=== PATIENT | female | born 1935 | race Caucasian/White ===

== ENCOUNTER 2017-11-28 21:55 | Emergency (ER) | payer MEDICARE, OTHER, MEDICAID | END 2017-11-29 01:00 | disposition home or self-care (01) | LOC: E/R 11-29 01:00 | DX: Z43.1 Encounter for attention to gastrostomy (principal); I10 Essential (primary) hypertension; E11.9 Type 2 diabetes mellitus without complications; Z79.84 Long term (current) use of oral hypoglycemic drugs | CPT/HCPCS: 99284 ==

== ENCOUNTER 2018-09-10 08:10 | Inpatient (IN) | payer MEDICARE, OTHER ==
[2018-09-10 08:33] LABS: ADD MAN DIFF? NO
[2018-09-10 08:36] LABS: WHITE BLOOD COUNT 5.5 10^3/ul (4.8-10.8)
[2018-09-10 08:36] LABS: BASOPHILS % 0.5 % (0.0-2.0); EOSINOPHILS # 0.3 10^3/ul (0.0-0.5); EOSINOPHILS % 4.7 % (0.0-7.0); HEMATOCRIT 26.1 % (37.0-47.0); HEMOGLOBIN 8.7 g/dl (12.0-16.0); LYMPHOCYTES # 0.9 10^3/ul (0.8-2.9); LYMPHOCYTES % 15.7 % (15.0-51.0); MEAN CORPUSCULAR HEMOGLOBIN 31.5 pg (29.0-33.0); MEAN CORPUSCULAR HGB CONC 33.3 g/dl (32.0-37.0); MEAN CORPUSCULAR VOLUME 94.6 fl (82.0-101.0); MEAN PLATELET VOLUME 9.1 fl (7.4-10.4); MONOCYTE # 0.5 10^3/ul (0.3-0.9); MONOCYTES % 8.4 % (0.0-11.0); NEUTROPHIL # 3.9 10^3/ul (1.6-7.5); NEUTROPHILS % 70.3 % (39.0-77.0); PLATELET COUNT 285 10^3/UL (140-415); RED BLOOD COUNT 2.76 10^6/ul (4.20-5.40); RED CELL DISTRIBUTION WIDTH 11.6 % (11.5-14.5)
[2018-09-10] MEDS: PANTOPRAZOLE 40 MG INJ IV ×2 (08:37→17:20)
[2018-09-10 08:53] LABS: ALANINE AMINOTRANSFERASE 20 IU/L (13-69); ALBUMIN 3.5 g/dl (3.3-4.9); ALKALINE PHOSPHATASE 149 IU/L (42-121); ANION GAP 6 (5-13); ASPARTATE AMINO TRANSFERASE 23 IU/L (15-46); BILIRUBIN,INDIRECT 0.1 mg/dl (0-1.1); BILIRUBIN,TOTAL 0.1 mg/dl (0.2-1.3); BLOOD UREA NITROGEN 31 mg/dl (7-20); CALCIUM 9.2 mg/dl (8.4-10.2); CARBON DIOXIDE 29 mmol/L (21-31); CHLORIDE 95 mmol/L (97-110); GLUCOSE 123 mg/dl (70-220); POTASSIUM 5.1 mmol/L (3.5-5.1); SODIUM 130 mmol/L (135-144); TOTAL PROTEIN 6.4 g/dl (6.1-8.1)
[2018-09-10 09:04] LABS: TROPONIN-I < 0.012 ng/ml (0.000-0.120)
[2018-09-10 09:19] LABS: PROTIME 12.3 Sec (11.9-14.9)
[2018-09-10 09:20] LABS: PARTIAL THROMBOPLASTIN TIME 33.5 Sec (23.0-35.0)
[2018-09-10] MEDS ORDERED: ACETAMINOPHEN 325 MG TAB PO ×2 (10:00→12:00)
[2018-09-10] MEDS ORDERED: ONDANSETRON 4 MG INJ IV (10:00)
[2018-09-10] MEDS: SOD CHLORIDE 0.9% 1,000 ML IV (10:23)
[2018-09-10] MEDS ORDERED: SOD CHLORIDE 0.45% 1,000 ML IV (11:39)
[2018-09-10] MEDS ORDERED: morphine 2 MG INJ IV (12:00)
[2018-09-10] MEDS ORDERED: NITROGLYCERIN (SL) 0.4 MG TAB SL (12:00)
[2018-09-10] MEDS ORDERED: DOCUSATE SODIUM 100 MG CAP PO (12:00)
[2018-09-10] MEDS ORDERED: LORAZEPAM 2 MG INJ IV (12:00)
[2018-09-10] MEDS ORDERED: ALBUTEROL/IPRATROPIUM (NEB) 3 ML AMP HHN (12:00)
[2018-09-10] MEDS ORDERED: hydrALAzine 20 MG INJ IV (12:00)
[2018-09-10] MEDS ORDERED: HYDROCODONE/APAP (5/325) TAB PO (12:00)
[2018-09-10] MEDS ORDERED: NACL 0.9% 3 ML SYG IV (12:00)
[2018-09-10] MEDS ORDERED: MAGNESIUM HYDROXIDE 30ML CUP PO (12:00)
[2018-09-10 12:19] LABS: HEMATOCRIT 24.9 % (37.0-47.0); HEMOGLOBIN 8.3 g/dl (12.0-16.0)
[2018-09-10 12:40] LABS: INR 0.96; PROTIME 12.9 Sec (11.9-14.9)
[2018-09-10 12:41] LABS: PARTIAL THROMBOPLASTIN TIME 34.7 Sec (23.0-35.0)
[2018-09-10 12:58] LABS: FREE T4 (FREE THYROXINE) 1.16 ng/dl (0.85-1.93)
[2018-09-10] MEDS: INSULIN ASPART [NOVOLOG] 3 ML PEN SC ×3 (13:00→22:48)
[2018-09-10] MEDS: SOD CHLORIDE 0.9% 500 ML IV (13:28)
[2018-09-10] MEDS: DEXTROSE 5%-0.9% NACL 1,000 ML IV (13:31)
[2018-09-10] MEDS: MUPIROCIN 2% 22 GM OINT TOP ×2 (17:20→22:49)
[2018-09-10] MEDS: PEG/ELECTROLYTES 4L BTL NGT (20:00)
[2018-09-10] MEDS ORDERED: NON-FORMULARY/PATIENT OWN MED (Cran/Vitc/Mannose/Inulin/Brom (Uti-Stat Liquid) 30 ML) GTB (21:00)
[2018-09-10] MEDS ORDERED: PEG/ELECTROLYTES 4L BTL NGT (22:00)
[2018-09-10] MEDS: INSULIN GLARGINE [LANTus] (100 UNITS/ML) SYG SC (22:48)
[2018-09-11] MEDS: PEG/ELECTROLYTES 4L BTL NGT (00:47)
[2018-09-11] MEDS: DEXTROSE 5%-0.9% NACL 1,000 ML IV ×3 (00:49→19:00)
[2018-09-11] MEDS: INSULIN ASPART [NOVOLOG] 3 ML PEN SC ×6 (00:49→21:00)
[2018-09-11] MEDS: ACCU-CHEK XX (01:25)
[2018-09-11] MEDS: PANTOPRAZOLE 40 MG INJ IV ×2 (05:35→17:59)
[2018-09-11 06:06] LABS: ADD MAN DIFF? NO
[2018-09-11 06:09] LABS: ABNORMAL IP MESSAGE 1; BASOPHILS % 0.4 % (0.0-2.0); EOSINOPHILS % 0.4 % (0.0-7.0); HEMATOCRIT 21.7 % (37.0-47.0); HEMOGLOBIN 7.2 g/dl (12.0-16.0); LYMPHOCYTES # 0.5 10^3/ul (0.8-2.9); LYMPHOCYTES % 6.7 % (15.0-51.0); MEAN CORPUSCULAR HEMOGLOBIN 31.4 pg (29.0-33.0); MEAN CORPUSCULAR HGB CONC 33.2 g/dl (32.0-37.0); MEAN CORPUSCULAR VOLUME 94.8 fl (82.0-101.0); MEAN PLATELET VOLUME 9.6 fl (7.4-10.4); MONOCYTE # 0.3 10^3/ul (0.3-0.9); MONOCYTES % 4.3 % (0.0-11.0); NEUTROPHIL # 6.9 10^3/ul (1.6-7.5); NEUTROPHILS % 87.9 % (39.0-77.0); PLATELET COUNT 274 10^3/UL (140-415); RED BLOOD COUNT 2.29 10^6/ul (4.20-5.40); RED CELL DISTRIBUTION WIDTH 11.7 % (11.5-14.5)
[2018-09-11 06:09] LABS: WHITE BLOOD COUNT 7.9 10^3/ul (4.8-10.8)
[2018-09-11 06:24] LABS: POSITIVE DIFF @See below
[2018-09-11 06:31] LABS: HEMOGLOBIN A1C 5.6 % (0-5.9)
[2018-09-11 06:53] LABS: ANION GAP 7 (5-13); BLOOD UREA NITROGEN 16 mg/dl (7-20); CALCIUM 8.5 mg/dl (8.4-10.2); CARBON DIOXIDE 20 mmol/L (21-31); CHLORIDE 109 mmol/L (97-110); CREATININE 0.53 mg/dl (0.44-1.00); GLUCOSE 204 mg/dl (70-220); MAGNESIUM 1.7 mg/dl (1.7-2.5); POTASSIUM 4.3 mmol/L (3.5-5.1); SODIUM 136 mmol/L (135-144)
[2018-09-11 06:59] LABS: CHOL/HDL RATIO 2.1 RATIO; HDL CHOLESTEROL 46 mg/dl (33-92); LDL CHOLESTEROL,CALCULATED 33 mg/dl; TRIGLYCERIDES 92 mg/dl (0-149)
[2018-09-11 06:59] LABS: CHOLESTEROL 97 mg/dl (100-200)
[2018-09-11] MEDS ORDERED: LIDOCAINE 2% (SDV) 5 ML INJ (07:00)
[2018-09-11] MEDS ORDERED: PROPOFOL 200 MG INJ (07:00)
[2018-09-11 09:29] LABS: OCCULT BLOOD STOOL POSITIVE (NEGATIVE)
[2018-09-11 09:30] LABS: OCCULT BLOOD STOOL POSITIVE (NEGATIVE)
[2018-09-11] MEDS: DOCUSATE SODIUM 10 MG/ML (10ML CUP) GTB (10:14)
[2018-09-11] MEDS: MULTIVITAMINS THERAPEUTIC TAB GTB (10:15)
[2018-09-11] MEDS: FOLIC ACID 0.4 MG TAB GTB (10:15)
[2018-09-11] MEDS: MUPIROCIN 2% 22 GM OINT TOP ×2 (10:18→21:00)
[2018-09-11] MEDS: NYSTATIN 15 GM CR TOP (15:30)
[2018-09-11] MEDS: NYSTATIN 30 GM POWDER BTL TOP ×2 (15:30→22:08)
[2018-09-11] MEDS ORDERED: hydrALAzine 20 MG INJ IV (17:00)
[2018-09-11] MEDS ORDERED: ONDANSETRON 4 MG INJ IV (17:00)
[2018-09-11] MEDS ORDERED: FENTAnyl 50 MCG/ML VIAL IV (17:00)
[2018-09-11] MEDS ORDERED: ALBUTEROL 0.083% (NEB) 2.5 MG/3 ML AMP HHN (17:00)
[2018-09-11] MEDS ORDERED: EPHEDrine SULFATE 50 MG/5 ML SYG IV (17:00)
[2018-09-11] MEDS ORDERED: LABETALOL HCL 20MG INJ IV (17:00)
[2018-09-11 18:28] LABS: AHG CROSSMATCH 1 2
[2018-09-11] MEDS: SOD CHLORIDE 0.9% 250 ML IV* (18:28)
[2018-09-11] MEDS: INSULIN GLARGINE [LANTus] (100 UNITS/ML) SYG SC (22:07)
[2018-09-12] MEDS: INSULIN ASPART [NOVOLOG] 3 ML PEN SC ×3 (00:58→08:46)
[2018-09-12] MEDS: ACCU-CHEK XX (00:59)
[2018-09-12] MEDS: NYSTATIN 15 GM CR TOP ×2 (01:56→08:47)
[2018-09-12] MEDS ORDERED: ACCU-CHEK XX (02:00)
[2018-09-12] MEDS: DEXTROSE 5%-0.9% NACL 1,000 ML IV (04:12)
[2018-09-12] MEDS: PANTOPRAZOLE 40 MG INJ IV ×2 (05:29→17:34)
[2018-09-12 07:01] LABS: ADD MAN DIFF? NO
[2018-09-12 07:07] LABS: WHITE BLOOD COUNT 7.7 10^3/ul (4.8-10.8)
[2018-09-12 07:07] LABS: BASOPHIL # 0.1 10^3/ul (0.0-0.1); BASOPHILS % 0.7 % (0.0-2.0); EOSINOPHILS # 0.1 10^3/ul (0.0-0.5); EOSINOPHILS % 0.8 % (0.0-7.0); HEMATOCRIT 33.5 % (37.0-47.0); HEMOGLOBIN 11.4 g/dl (12.0-16.0); LYMPHOCYTES # 1.1 10^3/ul (0.8-2.9); LYMPHOCYTES % 14.3 % (15.0-51.0); MEAN PLATELET VOLUME 9.4 fl (7.4-10.4); MONOCYTE # 0.7 10^3/ul (0.3-0.9); MONOCYTES % 9.6 % (0.0-11.0); NEUTROPHIL # 5.7 10^3/ul (1.6-7.5); NEUTROPHILS % 74.1 % (39.0-77.0); PLATELET COUNT 207 10^3/UL (140-415); RED BLOOD COUNT 3.68 10^6/ul (4.20-5.40); RED CELL DISTRIBUTION WIDTH 13.3 % (11.5-14.5)
[2018-09-12 07:30] LABS: ANION GAP 4 (5-13); BLOOD UREA NITROGEN 14 mg/dl (7-20); CALCIUM 9.2 mg/dl (8.4-10.2); CARBON DIOXIDE 23 mmol/L (21-31); CHLORIDE 113 mmol/L (97-110); CREATININE 0.61 mg/dl (0.44-1.00); GLUCOSE 96 mg/dl (70-220); POTASSIUM 3.9 mmol/L (3.5-5.1); SODIUM 140 mmol/L (135-144)
[2018-09-12] MEDS: FOLIC ACID 0.4 MG TAB GTB (08:44)
[2018-09-12] MEDS: MULTIVITAMINS THERAPEUTIC TAB GTB (08:44)
[2018-09-12] MEDS: DOCUSATE SODIUM 10 MG/ML (10ML CUP) GTB (08:44)
[2018-09-12] MEDS: NYSTATIN 30 GM POWDER BTL TOP ×2 (08:47→21:50)
[2018-09-12] MEDS: MUPIROCIN 2% 22 GM OINT TOP (08:47)
[2018-09-12] MEDS: CLOTRIMAZOLE 1% 30 GM CR TOP (12:51)
[2018-09-12] MEDS: DEXTROSE 5%-0.45% NACL 1,000 ML IV (21:38)
[2018-09-13] MEDS: CLOTRIMAZOLE 1% 30 GM CR TOP ×3 (00:45→20:23)
[2018-09-13] MEDS: PANTOPRAZOLE 40 MG INJ IV ×2 (05:34→17:56)
[2018-09-13 08:29] LABS: ADD MAN DIFF? NO
[2018-09-13 08:33] LABS: BASOPHILS % 0.4 % (0.0-2.0); EOSINOPHILS # 0.1 10^3/ul (0.0-0.5); EOSINOPHILS % 0.6 % (0.0-7.0); HEMATOCRIT 35.3 % (37.0-47.0); HEMOGLOBIN 12.2 g/dl (12.0-16.0); LYMPHOCYTES # 0.7 10^3/ul (0.8-2.9); LYMPHOCYTES % 9.5 % (15.0-51.0); MEAN CORPUSCULAR HGB CONC 34.6 g/dl (32.0-37.0); MEAN CORPUSCULAR VOLUME 89.8 fl (82.0-101.0); MEAN PLATELET VOLUME 9.4 fl (7.4-10.4); MONOCYTE # 0.6 10^3/ul (0.3-0.9); MONOCYTES % 7.4 % (0.0-11.0); NEUTROPHIL # 6.4 10^3/ul (1.6-7.5); NEUTROPHILS % 81.7 % (39.0-77.0); PLATELET COUNT 224 10^3/UL (140-415); RED BLOOD COUNT 3.93 10^6/ul (4.20-5.40); RED CELL DISTRIBUTION WIDTH 12.9 % (11.5-14.5)
[2018-09-13 08:33] LABS: WHITE BLOOD COUNT 7.8 10^3/ul (4.8-10.8)
[2018-09-13 08:49] LABS: ANION GAP 9 (5-13); BLOOD UREA NITROGEN 10 mg/dl (7-20); CARBON DIOXIDE 26 mmol/L (21-31); CHLORIDE 104 mmol/L (97-110); CREATININE 0.62 mg/dl (0.44-1.00); GLUCOSE 81 mg/dl (70-220); POTASSIUM 3.5 mmol/L (3.5-5.1); SODIUM 139 mmol/L (135-144)
[2018-09-13] MEDS: DOCUSATE SODIUM 10 MG/ML (10ML CUP) GTB (09:16)
[2018-09-13] MEDS: MULTIVITAMINS THERAPEUTIC TAB GTB (09:16)
[2018-09-13] MEDS: FOLIC ACID 0.4 MG TAB GTB (09:16)
[2018-09-13] MEDS: NYSTATIN 30 GM POWDER BTL TOP ×2 (09:16→20:24)
[2018-09-13] MEDS: ONDANSETRON 4 MG INJ IV (09:36)
[2018-09-13] MEDS: FLUCONAZOLE 400 MG/NS (PMX) 200 ML IVPB (09:41)
[2018-09-13] MEDS ORDERED: GLUCOSE GEL 15 GRAM TUBE BUCCAL (13:00)
[2018-09-13] MEDS ORDERED: GLUCOSE GEL 15 GRAM TUBE PO ×2 (13:00)
[2018-09-13] MEDS ORDERED: GLUCAGON 1 MG INJ IM (13:00)
[2018-09-13] MEDS ORDERED: DEXTROSE 50% 50 ML SYRINGE IV ×2 (13:00)
[2018-09-13] MEDS: INSULIN ASPART [NOVOLOG] 3 ML PEN SC ×3 (13:30→20:22)
[2018-09-13 15:37] LABS: ALANINE AMINOTRANSFERASE 14 IU/L (13-69); ALBUMIN/GLOBULIN RATIO 1.11; ALKALINE PHOSPHATASE 77 IU/L (42-121); ANION GAP 4 (5-13); ASPARTATE AMINO TRANSFERASE 28 IU/L (15-46); BLOOD UREA NITROGEN 10 mg/dl (7-20); CALCIUM 8.6 mg/dl (8.4-10.2); CARBON DIOXIDE 27 mmol/L (21-31); CHLORIDE 105 mmol/L (97-110); CREATININE 0.64 mg/dl (0.44-1.00); GLUCOSE 89 mg/dl (70-220); MAGNESIUM 1.7 mg/dl (1.7-2.5); PHOSPHORUS 3.6 mg/dl (2.5-4.9); POTASSIUM 3.3 mmol/L (3.5-5.1); SODIUM 136 mmol/L (135-144); TOTAL PROTEIN 5.7 g/dl (6.1-8.1); TRIGLYCERIDES 77 mg/dl (0-149)
[2018-09-13 15:47] LABS: PREALBUMIN 14.4 mg/dl (17.6-36.0)
[2018-09-13] MEDS: METOCLOPRAMIDE 10 MG INJ IV (17:56)
[2018-09-13] MEDS: DEXTROSE 10% 1,000 ML IV (17:56)
[2018-09-14] MEDS: INSULIN ASPART [NOVOLOG] 3 ML PEN SC ×6 (01:00→21:08)
[2018-09-14] MEDS: METOCLOPRAMIDE 10 MG INJ IV ×4 (01:49→18:21)
[2018-09-14] MEDS: ACCU-CHEK XX ×5 (01:50→21:00)
[2018-09-14 04:59] LABS: ADD MAN DIFF? NO; BASOPHILS % 0.3 % (0.0-2.0); EOSINOPHILS # 0.2 10^3/ul (0.0-0.5); EOSINOPHILS % 4.1 % (0.0-7.0); HEMATOCRIT 31.3 % (37.0-47.0); HEMOGLOBIN 10.7 g/dl (12.0-16.0); LYMPHOCYTES # 0.8 10^3/ul (0.8-2.9); LYMPHOCYTES % 14.1 % (15.0-51.0); MEAN CORPUSCULAR HGB CONC 34.2 g/dl (32.0-37.0); MEAN CORPUSCULAR VOLUME 90.7 fl (82.0-101.0); MEAN PLATELET VOLUME 9.4 fl (7.4-10.4); MONOCYTE # 0.6 10^3/ul (0.3-0.9); MONOCYTES % 10.4 % (0.0-11.0); NEUTROPHIL # 4.1 10^3/ul (1.6-7.5); NEUTROPHILS % 70.6 % (39.0-77.0); PLATELET COUNT 223 10^3/UL (140-415); RED BLOOD COUNT 3.45 10^6/ul (4.20-5.40); RED CELL DISTRIBUTION WIDTH 12.7 % (11.5-14.5)
[2018-09-14 04:59] LABS: WHITE BLOOD COUNT 5.9 10^3/ul (4.8-10.8)
[2018-09-14 05:27] LABS: ANION GAP 7 (5-13); BLOOD UREA NITROGEN 10 mg/dl (7-20); CALCIUM 8.6 mg/dl (8.4-10.2); CARBON DIOXIDE 26 mmol/L (21-31); CHLORIDE 104 mmol/L (97-110); CREATININE 0.76 mg/dl (0.44-1.00); GLUCOSE 139 mg/dl (70-220); SODIUM 137 mmol/L (135-144)
[2018-09-14 05:29] LABS: MAGNESIUM 1.7 mg/dl (1.7-2.5)
[2018-09-14 05:29] LABS: PHOSPHORUS 3.5 mg/dl (2.5-4.9)
[2018-09-14] MEDS: PANTOPRAZOLE 40 MG INJ IV ×2 (05:41→18:21)
[2018-09-14] MEDS: CLOTRIMAZOLE 1% 30 GM CR TOP ×2 (08:37→21:06)
[2018-09-14] MEDS: MULTIVITAMINS THERAPEUTIC TAB GTB (08:38)
[2018-09-14] MEDS: FOLIC ACID 0.4 MG TAB GTB (08:38)
[2018-09-14] MEDS: DOCUSATE SODIUM 10 MG/ML (10ML CUP) GTB (08:38)
[2018-09-14] MEDS: LIDOCAINE 1% (MPF) 5 ML VIAL SC (09:00)
[2018-09-14] MEDS ORDERED: VANCOMYCIN IV PER PHARMACY XX (09:00)
[2018-09-14] MEDS: FLUCONAZOLE 100 MG/50 ML (PMX) 50 ML IVPB (09:06)
[2018-09-14] MEDS: NYSTATIN 30 GM POWDER BTL TOP ×2 (10:11→21:07)
[2018-09-14] MEDS: VANCOMYCIN HCL 1.5 GM in SOD CHLORIDE 0.9% 250 ML IVPB (10:33)
[2018-09-14] MEDS ORDERED: BISACODYL 10 MG SUPP PR (11:30)
[2018-09-14 11:45] LABS: ADD UMIC YES; UR ASCORBIC ACID NEGATIVE (NEGATIVE); UR BACTERIA MANY /HPF (NONE SEEN); UR BILIRUBIN (Dip) NEGATIVE (NEGATIVE); UR BLOOD (Dip) NEGATIVE (NEGATIVE); UR CLARITY CLOUDY (CLEAR); UR COLOR YELLOW (YELLOW); UR GLUCOSE (Dip) NEGATIVE (NEGATIVE); UR KETONES (Dip) NEGATIVE (NEGATIVE); UR LEUKOCYTE ESTERASE (Dip) 3+ Leu/ul (NEGATIVE); UR NITRITE (Dip) NEGATIVE (NEGATIVE); UR RBC 13 /HPF (0-5); UR SPECIFIC GRAVITY (Dip) 1.011 (1.003-1.030); UR SQUAMOUS EPITHELIAL CELL FEW /HPF (FEW); UR TOTAL PROTEIN (Dip) 2+ mg/dl (NEGATIVE); UR UROBILINOGEN (Dip) NEGATIVE (NEGATIVE); UR WBC > 182 /HPF (0-5)
[2018-09-14] MEDS: TPN 1,000 ML IV (12:09)
[2018-09-14] MEDS: POTASSIUM CHLORIDE 100 ML IVPB ×2 (16:41→18:21)
[2018-09-15] MEDS: METOCLOPRAMIDE 10 MG INJ IV ×4 (00:47→17:15)
[2018-09-15] MEDS: INSULIN ASPART [NOVOLOG] 3 ML PEN SC ×6 (00:53→20:33)
[2018-09-15] MEDS: ACCU-CHEK XX ×7 (02:00→20:33)
[2018-09-15] MEDS: PANTOPRAZOLE 40 MG INJ IV ×2 (05:32→17:15)
[2018-09-15] MEDS: TPN 1,000 ML IV (06:49)
[2018-09-15 07:08] LABS: ADD MAN DIFF? NO
[2018-09-15 07:13] LABS: BASOPHILS % 0.5 % (0.0-2.0); EOSINOPHILS # 0.2 10^3/ul (0.0-0.5); EOSINOPHILS % 3.6 % (0.0-7.0); HEMATOCRIT 27.1 % (37.0-47.0); HEMOGLOBIN 9.1 g/dl (12.0-16.0); LYMPHOCYTES # 0.7 10^3/ul (0.8-2.9); LYMPHOCYTES % 11.5 % (15.0-51.0); MEAN CORPUSCULAR HEMOGLOBIN 30.8 pg (29.0-33.0); MEAN CORPUSCULAR HGB CONC 33.6 g/dl (32.0-37.0); MEAN CORPUSCULAR VOLUME 91.9 fl (82.0-101.0); MEAN PLATELET VOLUME 9.6 fl (7.4-10.4); MONOCYTE # 0.6 10^3/ul (0.3-0.9); MONOCYTES % 9.8 % (0.0-11.0); NEUTROPHIL # 4.7 10^3/ul (1.6-7.5); NEUTROPHILS % 74.1 % (39.0-77.0); PLATELET COUNT 190 10^3/UL (140-415); RED BLOOD COUNT 2.95 10^6/ul (4.20-5.40)
[2018-09-15 07:13] LABS: WHITE BLOOD COUNT 6.3 10^3/ul (4.8-10.8)
[2018-09-15 07:29] LABS: MAGNESIUM 1.6 mg/dl (1.7-2.5)
[2018-09-15 07:29] LABS: PHOSPHORUS 2.4 mg/dl (2.5-4.9)
[2018-09-15 07:32] LABS: ANION GAP 6 (5-13); BLOOD UREA NITROGEN 20 mg/dl (7-20); CALCIUM 7.6 mg/dl (8.4-10.2); CARBON DIOXIDE 21 mmol/L (21-31); CHLORIDE 112 mmol/L (97-110); CREATININE 0.75 mg/dl (0.44-1.00); GLUCOSE 150 mg/dl (70-220); POTASSIUM 3.7 mmol/L (3.5-5.1); SODIUM 139 mmol/L (135-144)
[2018-09-15] MEDS ORDERED: GENTAMICIN IV PER PHARMACY XX (08:30)
[2018-09-15] MEDS: MULTIVITAMINS THERAPEUTIC TAB GTB (09:00)
[2018-09-15] MEDS: FOLIC ACID 0.4 MG TAB GTB (09:00)
[2018-09-15] MEDS: DOCUSATE SODIUM 10 MG/ML (10ML CUP) GTB (09:00)
[2018-09-15] MEDS: CLOTRIMAZOLE 1% 30 GM CR TOP ×2 (09:03→20:28)
[2018-09-15] MEDS: NYSTATIN 30 GM POWDER BTL TOP ×2 (09:08→20:28)
[2018-09-15] MEDS: VANCOMYCIN 1 GM 250 ML IVPB (09:33)
[2018-09-15] MEDS: POTASSIUM PHOSPHATE 15 MM in SOD CHLORIDE 0.9% 250 ML IVPB (12:20)
[2018-09-15] MEDS: GENTAMICIN 160 MG in SOD CHLORIDE 0.9% 100 ML IVPB (12:25)
[2018-09-15] MEDS: MAGNESIUM SULFATE 2 GM/50 ML 50 ML IVPB (15:00)
[2018-09-15] MEDS ORDERED: GENTAMICIN TROUGH & PEAK XX (16:00)
[2018-09-16] MEDS: METOCLOPRAMIDE 10 MG INJ IV ×5 (00:45→23:24)
[2018-09-16] MEDS: INSULIN ASPART [NOVOLOG] 3 ML PEN SC ×6 (00:46→21:34)
[2018-09-16] MEDS: ACCU-CHEK XX ×7 (00:52→21:41)
[2018-09-16] MEDS: TPN 1,000 ML IV ×2 (02:07→23:22)
[2018-09-16] MEDS: PANTOPRAZOLE 40 MG INJ IV ×2 (05:16→18:14)
[2018-09-16] MEDS: FOLIC ACID 0.4 MG TAB GTB (08:12)
[2018-09-16] MEDS: DOCUSATE SODIUM 10 MG/ML (10ML CUP) GTB (08:12)
[2018-09-16] MEDS: MULTIVITAMINS THERAPEUTIC TAB GTB (08:12)
[2018-09-16] MEDS: CLOTRIMAZOLE 1% 30 GM CR TOP ×2 (08:13→21:41)
[2018-09-16] MEDS: NYSTATIN 30 GM POWDER BTL TOP ×2 (08:13→21:41)
[2018-09-16 08:21] LABS: ADD MAN DIFF? NO
[2018-09-16] MEDS ORDERED: AMIKACIN IV PER PHARMACY XX (08:30)
[2018-09-16] MEDS ORDERED: GENTAMICIN 160 MG in SOD CHLORIDE 0.9% 100 ML IVPB ×2 (09:00→12:00)
[2018-09-16 09:42] LABS: WHITE BLOOD COUNT 6.8 10^3/ul (4.8-10.8)
[2018-09-16 09:42] LABS: BASOPHILS % 0.3 % (0.0-2.0); EOSINOPHILS # 0.4 10^3/ul (0.0-0.5); EOSINOPHILS % 5.6 % (0.0-7.0); HEMATOCRIT 29.6 % (37.0-47.0); LYMPHOCYTES # 0.7 10^3/ul (0.8-2.9); LYMPHOCYTES % 10.3 % (15.0-51.0); MEAN CORPUSCULAR HEMOGLOBIN 30.9 pg (29.0-33.0); MEAN CORPUSCULAR HGB CONC 33.8 g/dl (32.0-37.0); MEAN CORPUSCULAR VOLUME 91.4 fl (82.0-101.0); MEAN PLATELET VOLUME 9.5 fl (7.4-10.4); MONOCYTE # 0.6 10^3/ul (0.3-0.9); MONOCYTES % 8.1 % (0.0-11.0); NEUTROPHIL # 5.1 10^3/ul (1.6-7.5); NEUTROPHILS % 75.6 % (39.0-77.0); PLATELET COUNT 205 10^3/UL (140-415); RED BLOOD COUNT 3.24 10^6/ul (4.20-5.40); RED CELL DISTRIBUTION WIDTH 12.8 % (11.5-14.5)
[2018-09-16 10:05] LABS: ANION GAP 7 (5-13); BLOOD UREA NITROGEN 26 mg/dl (7-20); CALCIUM 8.5 mg/dl (8.4-10.2); CARBON DIOXIDE 21 mmol/L (21-31); CHLORIDE 109 mmol/L (97-110); CREATININE 0.86 mg/dl (0.44-1.00); GLUCOSE 139 mg/dl (70-220); POTASSIUM 4.1 mmol/L (3.5-5.1); SODIUM 137 mmol/L (135-144)
[2018-09-16 10:06] LABS: PHOSPHORUS 3.1 mg/dl (2.5-4.9)
[2018-09-16] MEDS: ALTEPLASE (CATHFLO) 2 MG INJ CATHETER (10:58)
[2018-09-16] MEDS ORDERED: GENTAMICIN TROUGH & PEAK XX (11:00)
[2018-09-16] MEDS ORDERED: AMIKACIN 1,000 MG in SOD CHLORIDE 0.9% 100 ML IVPB (11:00)
[2018-09-16] MEDS: VANCOMYCIN 1 GM 250 ML IVPB (11:29)
[2018-09-16] MEDS: AMIKACIN 1,000 MG in SOD CHLORIDE 0.9% 100 ML IVPB (13:57)
[2018-09-17] MEDS: INSULIN ASPART [NOVOLOG] 3 ML PEN SC ×6 (01:17→22:18)
[2018-09-17] MEDS: ACCU-CHEK XX ×7 (01:19→21:00)
[2018-09-17] MEDS: PANTOPRAZOLE 40 MG INJ IV ×2 (05:05→17:47)
[2018-09-17] MEDS: METOCLOPRAMIDE 10 MG INJ IV ×3 (05:05→17:47)
[2018-09-17 07:24] LABS: ADD MAN DIFF? NO
[2018-09-17 07:29] LABS: BASOPHILS % 0.5 % (0.0-2.0); EOSINOPHILS # 0.5 10^3/ul (0.0-0.5); EOSINOPHILS % 8.1 % (0.0-7.0); HEMATOCRIT 28.1 % (37.0-47.0); HEMOGLOBIN 9.4 g/dl (12.0-16.0); LYMPHOCYTES # 0.7 10^3/ul (0.8-2.9); LYMPHOCYTES % 11.8 % (15.0-51.0); MEAN CORPUSCULAR HEMOGLOBIN 31.1 pg (29.0-33.0); MEAN CORPUSCULAR HGB CONC 33.5 g/dl (32.0-37.0); MEAN PLATELET VOLUME 9.6 fl (7.4-10.4); MONOCYTE # 0.6 10^3/ul (0.3-0.9); MONOCYTES % 9.1 % (0.0-11.0); NEUTROPHIL # 4.2 10^3/ul (1.6-7.5); PLATELET COUNT 201 10^3/UL (140-415); RED BLOOD COUNT 3.02 10^6/ul (4.20-5.40); RED CELL DISTRIBUTION WIDTH 12.8 % (11.5-14.5)
[2018-09-17 07:50] LABS: ANION GAP 5 (5-13); BLOOD UREA NITROGEN 25 mg/dl (7-20); CALCIUM 8.4 mg/dl (8.4-10.2); CARBON DIOXIDE 21 mmol/L (21-31); CHLORIDE 111 mmol/L (97-110); CREATININE 0.74 mg/dl (0.44-1.00); GLUCOSE 144 mg/dl (70-220); POTASSIUM 3.9 mmol/L (3.5-5.1); SODIUM 137 mmol/L (135-144)
[2018-09-17] MEDS: FOLIC ACID 0.4 MG TAB GTB (09:00)
[2018-09-17] MEDS: MULTIVITAMINS THERAPEUTIC TAB GTB (09:00)
[2018-09-17] MEDS: DOCUSATE SODIUM 10 MG/ML (10ML CUP) GTB (09:00)
[2018-09-17 09:05] LABS: VANCOMYCIN,TROUGH 16.1 ug/ml (10.0-20.0)
[2018-09-17] MEDS: CLOTRIMAZOLE 1% 30 GM CR TOP ×2 (09:20→22:19)
[2018-09-17] MEDS: NYSTATIN 30 GM POWDER BTL TOP ×2 (09:20→22:19)
[2018-09-17] MEDS: VANCOMYCIN 1 GM 250 ML IVPB (11:56)
[2018-09-17] MEDS: TPN 1,000 ML IV (18:17)
[2018-09-18] MEDS: INSULIN ASPART [NOVOLOG] 3 ML PEN SC ×6 (00:56→20:53)
[2018-09-18] MEDS: METOCLOPRAMIDE 10 MG INJ IV ×5 (00:57→23:52)
[2018-09-18] MEDS: ACCU-CHEK XX ×7 (00:57→20:56)
[2018-09-18] MEDS: AMIKACIN 1,000 MG in SOD CHLORIDE 0.9% 100 ML IVPB (02:10)
[2018-09-18] MEDS: PANTOPRAZOLE 40 MG INJ IV ×2 (05:08→17:29)
[2018-09-18 06:09] LABS: ADD MAN DIFF? NO
[2018-09-18 06:15] LABS: BASOPHILS % 0.5 % (0.0-2.0); EOSINOPHILS # 0.6 10^3/ul (0.0-0.5); EOSINOPHILS % 9.7 % (0.0-7.0); HEMATOCRIT 28.6 % (37.0-47.0); HEMOGLOBIN 9.7 g/dl (12.0-16.0); LYMPHOCYTES # 0.9 10^3/ul (0.8-2.9); LYMPHOCYTES % 14.8 % (15.0-51.0); MEAN CORPUSCULAR HEMOGLOBIN 30.7 pg (29.0-33.0); MEAN CORPUSCULAR HGB CONC 33.9 g/dl (32.0-37.0); MEAN CORPUSCULAR VOLUME 90.5 fl (82.0-101.0); MEAN PLATELET VOLUME 9.9 fl (7.4-10.4); MONOCYTE # 0.6 10^3/ul (0.3-0.9); MONOCYTES % 9.1 % (0.0-11.0); NEUTROPHILS % 65.6 % (39.0-77.0); PLATELET COUNT 235 10^3/UL (140-415); RED BLOOD COUNT 3.16 10^6/ul (4.20-5.40); RED CELL DISTRIBUTION WIDTH 12.7 % (11.5-14.5)
[2018-09-18 06:15] LABS: WHITE BLOOD COUNT 6.1 10^3/ul (4.8-10.8)
[2018-09-18 06:45] LABS: PHOSPHORUS 3.3 mg/dl (2.5-4.9)
[2018-09-18 08:26] LABS: ALANINE AMINOTRANSFERASE 14 IU/L (13-69); ALBUMIN 2.7 g/dl (3.3-4.9); ALBUMIN/GLOBULIN RATIO 1.03; ALKALINE PHOSPHATASE 67 IU/L (42-121); ANION GAP 6 (5-13); ASPARTATE AMINO TRANSFERASE 19 IU/L (15-46); BILIRUBIN,INDIRECT 0.3 mg/dl (0-1.1); BILIRUBIN,TOTAL 0.3 mg/dl (0.2-1.3); BLOOD UREA NITROGEN 27 mg/dl (7-20); CALCIUM 8.6 mg/dl (8.4-10.2); CARBON DIOXIDE 19 mmol/L (21-31); CHLORIDE 112 mmol/L (97-110); CREATININE 0.78 mg/dl (0.44-1.00); GLUCOSE 154 mg/dl (70-220); MAGNESIUM 1.8 mg/dl (1.7-2.5); POTASSIUM 3.7 mmol/L (3.5-5.1); SODIUM 137 mmol/L (135-144); TOTAL PROTEIN 5.3 g/dl (6.1-8.1)
[2018-09-18] MEDS: FOLIC ACID 0.4 MG TAB GTB (08:31)
[2018-09-18] MEDS: MULTIVITAMINS THERAPEUTIC TAB GTB (08:31)
[2018-09-18] MEDS: DOCUSATE SODIUM 10 MG/ML (10ML CUP) GTB (08:31)
[2018-09-18] MEDS: CLOTRIMAZOLE 1% 30 GM CR TOP ×2 (08:33→20:55)
[2018-09-18] MEDS: NYSTATIN 30 GM POWDER BTL TOP ×2 (08:33→20:55)
[2018-09-18] MEDS ORDERED: AMIKACIN 1,000 MG in SOD CHLORIDE 0.9% 250 ML IVPB (09:56)
[2018-09-18] MEDS: TPN 1,000 ML IV (10:48)
[2018-09-18] MEDS: VANCOMYCIN 1 GM 250 ML IVPB (10:48)
[2018-09-18] MEDS: MAGNESIUM SULFATE 1 GM/D5W 100 ML IVPB (12:50)
[2018-09-18] MEDS: POTASSIUM CHLORIDE 50 ML IVPB (14:06)
[2018-09-18] MEDS: hydrALAzine 20 MG INJ IV (14:08)
[2018-09-19] MEDS: ACCU-CHEK XX ×7 (01:00→21:06)
[2018-09-19] MEDS: INSULIN ASPART [NOVOLOG] 3 ML PEN SC ×6 (01:09→20:58)
[2018-09-19] MEDS: TPN 1,000 ML IV ×2 (03:24→04:51)
[2018-09-19] MEDS: METOCLOPRAMIDE 10 MG INJ IV ×3 (05:12→17:00)
[2018-09-19] MEDS: PANTOPRAZOLE 40 MG INJ IV ×2 (05:14→17:00)
[2018-09-19] MEDS: DOCUSATE SODIUM 10 MG/ML (10ML CUP) GTB (07:51)
[2018-09-19] MEDS: FOLIC ACID 0.4 MG TAB GTB (07:52)
[2018-09-19] MEDS: MULTIVITAMINS THERAPEUTIC TAB GTB (07:52)
[2018-09-19 09:13] LABS: ADD MAN DIFF? NO
[2018-09-19 09:16] LABS: WHITE BLOOD COUNT 6.9 10^3/ul (4.8-10.8)
[2018-09-19 09:16] LABS: ABNORMAL IP MESSAGE 1; BASOPHILS % 0.4 % (0.0-2.0); EOSINOPHILS # 0.4 10^3/ul (0.0-0.5); EOSINOPHILS % 6.1 % (0.0-7.0); HEMATOCRIT 30.6 % (37.0-47.0); HEMOGLOBIN 10.2 g/dl (12.0-16.0); LYMPHOCYTES # 0.6 10^3/ul (0.8-2.9); LYMPHOCYTES % 8.4 % (15.0-51.0); MEAN CORPUSCULAR HEMOGLOBIN 30.9 pg (29.0-33.0); MEAN CORPUSCULAR HGB CONC 33.3 g/dl (32.0-37.0); MEAN CORPUSCULAR VOLUME 92.7 fl (82.0-101.0); MONOCYTE # 0.6 10^3/ul (0.3-0.9); MONOCYTES % 9.1 % (0.0-11.0); NEUTROPHIL # 5.3 10^3/ul (1.6-7.5); NEUTROPHILS % 75.6 % (39.0-77.0); PLATELET COUNT 254 10^3/UL (140-415); RED CELL DISTRIBUTION WIDTH 12.8 % (11.5-14.5)
[2018-09-19] MEDS: CLOTRIMAZOLE 1% 30 GM CR TOP ×2 (09:23→20:58)
[2018-09-19] MEDS: NYSTATIN 30 GM POWDER BTL TOP ×2 (09:23→20:59)
[2018-09-19 09:24] LABS: POSITIVE DIFF @See below
[2018-09-19 09:57] LABS: ANION GAP 7 (5-13); BLOOD UREA NITROGEN 30 mg/dl (7-20); CALCIUM 8.9 mg/dl (8.4-10.2); CARBON DIOXIDE 20 mmol/L (21-31); CHLORIDE 110 mmol/L (97-110); CREATININE 0.77 mg/dl (0.44-1.00); GLUCOSE 172 mg/dl (70-220); MAGNESIUM 1.9 mg/dl (1.7-2.5); PHOSPHORUS 3.2 mg/dl (2.5-4.9); POTASSIUM 3.8 mmol/L (3.5-5.1); SODIUM 137 mmol/L (135-144)
[2018-09-19] MEDS: VANCOMYCIN 1 GM 250 ML IVPB (10:29)
[2018-09-19] MEDS: AMIKACIN 1,000 MG in SOD CHLORIDE 0.9% 250 ML IVPB (13:01)
[2018-09-19] MEDS: MAGNESIUM SULFATE 1 GM/D5W 100 ML IVPB (15:10)
[2018-09-19] MEDS: POTASSIUM CHLORIDE 50 ML IVPB (16:14)
[2018-09-19] MEDS: ALTEPLASE (CATHFLO) 2 MG INJ CATHETER (23:10)
[2018-09-20] MEDS: TPN 1,000 ML IV ×2 (00:03→12:07)
[2018-09-20] MEDS: ACCU-CHEK XX ×7 (00:41→21:04)
[2018-09-20] MEDS: INSULIN ASPART [NOVOLOG] 3 ML PEN SC ×6 (00:41→21:00)
[2018-09-20] MEDS: METOCLOPRAMIDE 10 MG INJ IV ×5 (00:42→23:54)
[2018-09-20] MEDS: PANTOPRAZOLE 40 MG INJ IV ×2 (05:01→18:12)
[2018-09-20 07:21] LABS: ADD MAN DIFF? NO
[2018-09-20 07:28] LABS: BASOPHILS % 0.6 % (0.0-2.0); EOSINOPHILS # 0.4 10^3/ul (0.0-0.5); EOSINOPHILS % 6.5 % (0.0-7.0); HEMATOCRIT 28.9 % (37.0-47.0); HEMOGLOBIN 9.6 g/dl (12.0-16.0); LYMPHOCYTES # 0.6 10^3/ul (0.8-2.9); LYMPHOCYTES % 9.5 % (15.0-51.0); MEAN CORPUSCULAR HEMOGLOBIN 30.9 pg (29.0-33.0); MEAN CORPUSCULAR HGB CONC 33.2 g/dl (32.0-37.0); MEAN CORPUSCULAR VOLUME 92.9 fl (82.0-101.0); MEAN PLATELET VOLUME 10.2 fl (7.4-10.4); MONOCYTE # 0.5 10^3/ul (0.3-0.9); MONOCYTES % 8.1 % (0.0-11.0); NEUTROPHIL # 4.8 10^3/ul (1.6-7.5); NEUTROPHILS % 74.7 % (39.0-77.0); PLATELET COUNT 250 10^3/UL (140-415); RED BLOOD COUNT 3.11 10^6/ul (4.20-5.40); RED CELL DISTRIBUTION WIDTH 12.9 % (11.5-14.5)
[2018-09-20 07:28] LABS: WHITE BLOOD COUNT 6.4 10^3/ul (4.8-10.8)
[2018-09-20 07:55] LABS: PREALBUMIN 16.3 mg/dl (17.6-36.0)
[2018-09-20 07:59] LABS: ANION GAP 6 (5-13); BLOOD UREA NITROGEN 27 mg/dl (7-20); CALCIUM 8.9 mg/dl (8.4-10.2); CARBON DIOXIDE 19 mmol/L (21-31); CHLORIDE 111 mmol/L (97-110); CREATININE 0.77 mg/dl (0.44-1.00); GLUCOSE 167 mg/dl (70-220); MAGNESIUM 1.8 mg/dl (1.7-2.5); PHOSPHORUS 2.9 mg/dl (2.5-4.9); POTASSIUM 3.6 mmol/L (3.5-5.1); SODIUM 136 mmol/L (135-144)
[2018-09-20] MEDS: MULTIVITAMINS THERAPEUTIC TAB GTB (08:45)
[2018-09-20] MEDS: DOCUSATE SODIUM 10 MG/ML (10ML CUP) GTB (08:45)
[2018-09-20] MEDS: FOLIC ACID 0.4 MG TAB GTB (08:45)
[2018-09-20] MEDS: CLOTRIMAZOLE 1% 30 GM CR TOP ×2 (08:46→21:03)
[2018-09-20] MEDS: NYSTATIN 30 GM POWDER BTL TOP ×2 (08:46→21:03)
[2018-09-20] MEDS: VANCOMYCIN 1 GM 250 ML IVPB (08:49)
[2018-09-20] MEDS: D5W-0.45 NACL + KCL 20 MEQ 1,000 ML IV (19:42)
[2018-09-21] MEDS: INSULIN ASPART [NOVOLOG] 3 ML PEN SC ×6 (01:00→20:18)
[2018-09-21] MEDS: ACCU-CHEK XX ×7 (01:00→20:25)
[2018-09-21] MEDS: PANTOPRAZOLE 40 MG INJ IV ×2 (05:05→17:04)
[2018-09-21] MEDS: METOCLOPRAMIDE 10 MG INJ IV ×3 (05:06→17:04)
[2018-09-21 07:20] LABS: ADD MAN DIFF? NO
[2018-09-21 07:24] LABS: BASOPHIL # 0.1 10^3/ul (0.0-0.1); BASOPHILS % 0.8 % (0.0-2.0); EOSINOPHILS # 0.6 10^3/ul (0.0-0.5); EOSINOPHILS % 9.3 % (0.0-7.0); HEMATOCRIT 28.7 % (37.0-47.0); HEMOGLOBIN 9.7 g/dl (12.0-16.0); LYMPHOCYTES # 0.6 10^3/ul (0.8-2.9); LYMPHOCYTES % 10.6 % (15.0-51.0); MEAN CORPUSCULAR HEMOGLOBIN 31.1 pg (29.0-33.0); MEAN CORPUSCULAR HGB CONC 33.8 g/dl (32.0-37.0); MEAN PLATELET VOLUME 10.1 fl (7.4-10.4); MONOCYTE # 0.7 10^3/ul (0.3-0.9); MONOCYTES % 11.7 % (0.0-11.0); NEUTROPHIL # 4.1 10^3/ul (1.6-7.5); NEUTROPHILS % 67.1 % (39.0-77.0); PLATELET COUNT 261 10^3/UL (140-415); RED BLOOD COUNT 3.12 10^6/ul (4.20-5.40); RED CELL DISTRIBUTION WIDTH 12.9 % (11.5-14.5)
[2018-09-21 07:24] LABS: WHITE BLOOD COUNT 6.1 10^3/ul (4.8-10.8)
[2018-09-21] MEDS: DOCUSATE SODIUM 10 MG/ML (10ML CUP) GTB (07:36)
[2018-09-21] MEDS: FOLIC ACID 0.4 MG TAB GTB (07:36)
[2018-09-21] MEDS: MULTIVITAMINS THERAPEUTIC TAB GTB (07:37)
[2018-09-21 07:43] LABS: MAGNESIUM 1.7 mg/dl (1.7-2.5)
[2018-09-21 07:43] LABS: PHOSPHORUS 3.7 mg/dl (2.5-4.9)
[2018-09-21 07:44] LABS: ANION GAP 9 (5-13); BLOOD UREA NITROGEN 20 mg/dl (7-20); CARBON DIOXIDE 21 mmol/L (21-31); CHLORIDE 112 mmol/L (97-110); CREATININE 0.95 mg/dl (0.44-1.00); GLUCOSE 128 mg/dl (70-220); POTASSIUM 3.7 mmol/L (3.5-5.1); SODIUM 142 mmol/L (135-144)
[2018-09-21] MEDS: CLOTRIMAZOLE 1% 30 GM CR TOP ×2 (07:56→20:19)
[2018-09-21] MEDS: NYSTATIN 30 GM POWDER BTL TOP ×2 (07:57→20:19)
[2018-09-21] MEDS: D5W-0.45 NACL + KCL 20 MEQ 1,000 ML IV (10:45)
[2018-09-22] MEDS: METOCLOPRAMIDE 10 MG INJ IV ×4 (00:05→17:01)
[2018-09-22] MEDS: ACCU-CHEK XX ×7 (01:20→21:00)
[2018-09-22] MEDS: D5W-0.45 NACL + KCL 20 MEQ 1,000 ML IV ×2 (02:44→21:12)
[2018-09-22] MEDS: INSULIN ASPART [NOVOLOG] 3 ML PEN SC ×6 (05:00→21:00)
[2018-09-22] MEDS: PANTOPRAZOLE 40 MG INJ IV ×2 (05:12→17:02)
[2018-09-22] MEDS: FOLIC ACID 0.4 MG TAB GTB (07:18)
[2018-09-22] MEDS: MULTIVITAMINS THERAPEUTIC TAB GTB (07:18)
[2018-09-22] MEDS: DOCUSATE SODIUM 10 MG/ML (10ML CUP) GTB (07:18)
[2018-09-22] MEDS: NYSTATIN 30 GM POWDER BTL TOP ×2 (08:28→21:11)
[2018-09-22] MEDS: CLOTRIMAZOLE 1% 30 GM CR TOP ×2 (08:28→21:10)
[2018-09-23] MEDS: METOCLOPRAMIDE 10 MG INJ IV ×4 (00:08→18:00)
[2018-09-23] MEDS: INSULIN ASPART [NOVOLOG] 3 ML PEN SC ×6 (01:00→21:00)
[2018-09-23] MEDS: ACCU-CHEK XX ×7 (01:00→21:00)
[2018-09-23] MEDS: PANTOPRAZOLE 40 MG INJ IV ×2 (05:52→18:00)
[2018-09-23] MEDS: FOLIC ACID 0.4 MG TAB GTB (08:09)
[2018-09-23] MEDS: MULTIVITAMINS THERAPEUTIC TAB GTB (08:09)
[2018-09-23] MEDS: DOCUSATE SODIUM 10 MG/ML (10ML CUP) GTB (08:09)
[2018-09-23] MEDS: CLOTRIMAZOLE 1% 30 GM CR TOP ×2 (08:11→21:22)
[2018-09-23] MEDS: NYSTATIN 30 GM POWDER BTL TOP ×2 (08:12→21:22)
[2018-09-23] MEDS: D5W-0.45 NACL + KCL 20 MEQ 1,000 ML IV ×2 (13:10→15:21)
[2018-09-23 16:08] LABS: ADD MAN DIFF? NO
[2018-09-23 16:12] LABS: WHITE BLOOD COUNT 6.4 10^3/ul (4.8-10.8)
[2018-09-23 16:12] LABS: BASOPHILS % 0.6 % (0.0-2.0); EOSINOPHILS # 0.3 10^3/ul (0.0-0.5); EOSINOPHILS % 4.5 % (0.0-7.0); HEMATOCRIT 30.7 % (37.0-47.0); LYMPHOCYTES # 0.7 10^3/ul (0.8-2.9); LYMPHOCYTES % 11.1 % (15.0-51.0); MEAN CORPUSCULAR HEMOGLOBIN 30.9 pg (29.0-33.0); MEAN CORPUSCULAR HGB CONC 32.6 g/dl (32.0-37.0); MEAN CORPUSCULAR VOLUME 94.8 fl (82.0-101.0); MEAN PLATELET VOLUME 10.1 fl (7.4-10.4); MONOCYTE # 0.5 10^3/ul (0.3-0.9); MONOCYTES % 7.1 % (0.0-11.0); NEUTROPHIL # 4.9 10^3/ul (1.6-7.5); NEUTROPHILS % 76.2 % (39.0-77.0); PLATELET COUNT 278 10^3/UL (140-415); RED BLOOD COUNT 3.24 10^6/ul (4.20-5.40)
[2018-09-23 16:27] LABS: INR 1.12; PROTIME 14.5 Sec (11.9-14.9); PT RATIO 1.1
[2018-09-24] MEDS: INSULIN ASPART [NOVOLOG] 3 ML PEN SC ×6 (00:31→20:12)
[2018-09-24] MEDS: ACCU-CHEK XX ×7 (00:31→20:12)
[2018-09-24] MEDS: METOCLOPRAMIDE 10 MG INJ IV ×4 (05:40→17:24)
[2018-09-24] MEDS: PANTOPRAZOLE 40 MG INJ IV ×2 (05:40→17:24)
[2018-09-24] MEDS: D5W-0.45 NACL + KCL 20 MEQ 1,000 ML IV ×2 (05:50→18:44)
[2018-09-24 08:19] LABS: ADD MAN DIFF? NO
[2018-09-24 08:26] LABS: WHITE BLOOD COUNT 5.1 10^3/ul (4.8-10.8)
[2018-09-24 08:26] LABS: BASOPHIL # 0.1 10^3/ul (0.0-0.1); EOSINOPHILS # 0.3 10^3/ul (0.0-0.5); EOSINOPHILS % 6.6 % (0.0-7.0); HEMATOCRIT 29.2 % (37.0-47.0); HEMOGLOBIN 9.6 g/dl (12.0-16.0); LYMPHOCYTES # 0.7 10^3/ul (0.8-2.9); LYMPHOCYTES % 13.1 % (15.0-51.0); MEAN CORPUSCULAR HEMOGLOBIN 30.8 pg (29.0-33.0); MEAN CORPUSCULAR HGB CONC 32.9 g/dl (32.0-37.0); MEAN CORPUSCULAR VOLUME 93.6 fl (82.0-101.0); MEAN PLATELET VOLUME 10.3 fl (7.4-10.4); MONOCYTE # 0.5 10^3/ul (0.3-0.9); NEUTROPHIL # 3.6 10^3/ul (1.6-7.5); NEUTROPHILS % 70.1 % (39.0-77.0); PLATELET COUNT 261 10^3/UL (140-415); RED BLOOD COUNT 3.12 10^6/ul (4.20-5.40); RED CELL DISTRIBUTION WIDTH 12.9 % (11.5-14.5)
[2018-09-24] MEDS: DOCUSATE SODIUM 10 MG/ML (10ML CUP) GTB (08:29)
[2018-09-24] MEDS: MULTIVITAMINS THERAPEUTIC TAB GTB (08:29)
[2018-09-24] MEDS: FOLIC ACID 0.4 MG TAB GTB (08:29)
[2018-09-24 08:46] LABS: ANION GAP 9 (5-13); BLOOD UREA NITROGEN 11 mg/dl (7-20); CALCIUM 9.1 mg/dl (8.4-10.2); CARBON DIOXIDE 21 mmol/L (21-31); CHLORIDE 110 mmol/L (97-110); CREATININE 0.83 mg/dl (0.44-1.00); GLUCOSE 93 mg/dl (70-220); MAGNESIUM 1.6 mg/dl (1.7-2.5); POTASSIUM 3.7 mmol/L (3.5-5.1); SODIUM 140 mmol/L (135-144)
[2018-09-24] MEDS: NYSTATIN 30 GM POWDER BTL TOP ×2 (08:57→20:12)
[2018-09-24] MEDS: CLOTRIMAZOLE 1% 30 GM CR TOP ×2 (08:57→20:13)
[2018-09-24] MEDS: MAGNESIUM SULFATE 2 GM/50 ML 50 ML IVPB (14:07)
[2018-09-25] MEDS: METOCLOPRAMIDE 10 MG INJ IV ×4 (00:30→18:05)
[2018-09-25] MEDS: INSULIN ASPART [NOVOLOG] 3 ML PEN SC ×6 (00:30→20:35)
[2018-09-25] MEDS: ACCU-CHEK XX ×7 (00:31→20:34)
[2018-09-25] MEDS: PANTOPRAZOLE 40 MG INJ IV ×2 (05:37→18:05)
[2018-09-25 06:34] LABS: ADD MAN DIFF? NO
[2018-09-25 06:36] LABS: BASOPHILS % 0.7 % (0.0-2.0); EOSINOPHILS # 0.3 10^3/ul (0.0-0.5); EOSINOPHILS % 6.8 % (0.0-7.0); HEMATOCRIT 28.2 % (37.0-47.0); HEMOGLOBIN 9.4 g/dl (12.0-16.0); LYMPHOCYTES # 0.9 10^3/ul (0.8-2.9); LYMPHOCYTES % 18.9 % (15.0-51.0); MEAN CORPUSCULAR HEMOGLOBIN 30.8 pg (29.0-33.0); MEAN CORPUSCULAR HGB CONC 33.3 g/dl (32.0-37.0); MEAN CORPUSCULAR VOLUME 92.5 fl (82.0-101.0); MEAN PLATELET VOLUME 10.3 fl (7.4-10.4); MONOCYTE # 0.5 10^3/ul (0.3-0.9); NEUTROPHIL # 2.8 10^3/ul (1.6-7.5); NEUTROPHILS % 62.4 % (39.0-77.0); PLATELET COUNT 261 10^3/UL (140-415); RED BLOOD COUNT 3.05 10^6/ul (4.20-5.40); RED CELL DISTRIBUTION WIDTH 12.8 % (11.5-14.5)
[2018-09-25 06:36] LABS: WHITE BLOOD COUNT 4.6 10^3/ul (4.8-10.8)
[2018-09-25 07:10] LABS: ANION GAP 8 (5-13); BLOOD UREA NITROGEN 9 mg/dl (7-20); CALCIUM 8.7 mg/dl (8.4-10.2); CARBON DIOXIDE 23 mmol/L (21-31); CHLORIDE 108 mmol/L (97-110); CREATININE 0.84 mg/dl (0.44-1.00); GLUCOSE 105 mg/dl (70-220); MAGNESIUM 2.2 mg/dl (1.7-2.5); POTASSIUM 3.6 mmol/L (3.5-5.1); SODIUM 139 mmol/L (135-144)
[2018-09-25] MEDS: CLOTRIMAZOLE 1% 30 GM CR TOP ×2 (09:00→20:37)
[2018-09-25] MEDS: DOCUSATE SODIUM 10 MG/ML (10ML CUP) GTB (09:00)
[2018-09-25] MEDS: FOLIC ACID 0.4 MG TAB GTB (09:00)
[2018-09-25] MEDS: MULTIVITAMINS THERAPEUTIC TAB GTB (09:00)
[2018-09-25] MEDS: NYSTATIN 30 GM POWDER BTL TOP ×2 (09:24→21:00)
[2018-09-25] MEDS: D5W-0.45 NACL + KCL 20 MEQ 1,000 ML IV (13:41)
[2018-09-25] MEDS ORDERED: FENTAnyl 50 MCG/ML VIAL IV ×3 (14:00)
[2018-09-25] MEDS ORDERED: ONDANSETRON 4 MG INJ IV (14:00)
[2018-09-25] MEDS: hydrALAzine 20 MG INJ IV (15:28)
[2018-09-25] MEDS ORDERED: LABETALOL HCL 20MG INJ IV (15:30)
[2018-09-26] MEDS: INSULIN ASPART [NOVOLOG] 3 ML PEN SC ×6 (00:59→21:00)
[2018-09-26] MEDS: ACCU-CHEK XX ×7 (00:59→21:50)
[2018-09-26] MEDS: METOCLOPRAMIDE 10 MG INJ IV ×4 (01:01→18:00)
[2018-09-26] MEDS: PANTOPRAZOLE 40 MG INJ IV ×2 (05:09→18:00)
[2018-09-26] MEDS: FOLIC ACID 0.4 MG TAB GTB (08:02)
[2018-09-26] MEDS: DOCUSATE SODIUM 10 MG/ML (10ML CUP) GTB (08:02)
[2018-09-26] MEDS: MULTIVITAMINS THERAPEUTIC TAB GTB (08:02)
[2018-09-26] MEDS: D5W-0.45 NACL + KCL 20 MEQ 1,000 ML IV (08:32)
[2018-09-26] MEDS: NYSTATIN 30 GM POWDER BTL TOP ×2 (08:48→21:51)
[2018-09-26] MEDS: CLOTRIMAZOLE 1% 30 GM CR TOP ×2 (09:00→21:51)
[2018-09-27] MEDS: INSULIN ASPART [NOVOLOG] 3 ML PEN SC ×6 (01:00→20:32)
[2018-09-27] MEDS: METOCLOPRAMIDE 10 MG INJ IV ×4 (01:09→17:16)
[2018-09-27] MEDS: D5W-0.45 NACL + KCL 20 MEQ 1,000 ML IV ×3 (01:18→17:17)
[2018-09-27] MEDS: ACCU-CHEK XX ×7 (01:20→20:32)
[2018-09-27] MEDS: FAMOTIDINE 20 MG INJ IV (06:19)
[2018-09-27 06:43] LABS: ANION GAP 5 (5-13); BLOOD UREA NITROGEN 8 mg/dl (7-20); CALCIUM 8.9 mg/dl (8.4-10.2); CARBON DIOXIDE 24 mmol/L (21-31); CHLORIDE 107 mmol/L (97-110); CREATININE 0.76 mg/dl (0.44-1.00); GLUCOSE 94 mg/dl (70-220); MAGNESIUM 1.8 mg/dl (1.7-2.5); POTASSIUM 3.5 mmol/L (3.5-5.1); SODIUM 136 mmol/L (135-144)
[2018-09-27] MEDS: DOCUSATE SODIUM 10 MG/ML (10ML CUP) GTB (08:55)
[2018-09-27] MEDS: FOLIC ACID 0.4 MG TAB GTB (08:55)
[2018-09-27] MEDS: MULTIVITAMINS THERAPEUTIC TAB GTB (08:55)
[2018-09-27] MEDS: CLOTRIMAZOLE 1% 30 GM CR TOP ×2 (09:06→20:31)
[2018-09-27] MEDS: NYSTATIN 30 GM POWDER BTL TOP ×2 (09:06→20:30)
[2018-09-28] MEDS: ACCU-CHEK XX ×7 (01:00→20:42)
[2018-09-28] MEDS: INSULIN ASPART [NOVOLOG] 3 ML PEN SC ×6 (01:00→20:39)
[2018-09-28] MEDS: METOCLOPRAMIDE 10 MG INJ IV ×4 (05:21→17:26)
[2018-09-28] MEDS: FAMOTIDINE 20 MG INJ IV (05:21)
[2018-09-28] MEDS: CLOTRIMAZOLE 1% 30 GM CR TOP ×2 (09:03→20:42)
[2018-09-28] MEDS: DOCUSATE SODIUM 10 MG/ML (10ML CUP) GTB (09:04)
[2018-09-28] MEDS: MULTIVITAMINS THERAPEUTIC TAB GTB (09:04)
[2018-09-28] MEDS: NYSTATIN 30 GM POWDER BTL TOP ×2 (09:04→20:42)
[2018-09-28] MEDS: FOLIC ACID 0.4 MG TAB GTB (09:04)
[2018-09-28] MEDS: D5W-0.45 NACL + KCL 20 MEQ 1,000 ML IV (09:50)
[2018-09-28] MEDS: LIDOCAINE 1% (MPF) 5 ML VIAL SC (12:23)
[2018-09-28] MEDS: LIDOCAINE 2% (SDV) 5 ML INJ (12:24)
[2018-09-28] MEDS: PROPOFOL 20 ML (12:24)
[2018-09-28] MEDS: FOSFOMYCIN 3 GM PACKET PO (12:24)
[2018-09-28] MEDS: CEFAZOLIN 1 GM/50 ML (PMX) 50 ML IVPB (12:25)
[2018-09-29] MEDS: METOCLOPRAMIDE 10 MG INJ IV ×4 (00:26→17:21)
[2018-09-29] MEDS: INSULIN ASPART [NOVOLOG] 3 ML PEN SC ×3 (00:29→08:43)
[2018-09-29] MEDS: ACCU-CHEK XX ×4 (00:32→08:45)
[2018-09-29] MEDS: FAMOTIDINE 20 MG INJ IV (05:12)
[2018-09-29] MEDS: D5W-0.45 NACL + KCL 20 MEQ 1,000 ML IV (05:12)
[2018-09-29] MEDS: FOLIC ACID 0.4 MG TAB GTB (08:44)
[2018-09-29] MEDS: DOCUSATE SODIUM 10 MG/ML (10ML CUP) GTB ×2 (08:44→08:46)
[2018-09-29] MEDS: MULTIVITAMINS THERAPEUTIC TAB GTB (08:44)
[2018-09-29] MEDS: NYSTATIN 30 GM POWDER BTL TOP (08:45)
[2018-09-29] MEDS: CLOTRIMAZOLE 1% 30 GM CR TOP (08:45)
== END 2018-09-29 18:07 | DRG 378 ==
LOC: E/R 08:10 → 5EC 09:39
PROVIDERS: Hospitalist
PROC: 0DH68UZ Insertion of Feeding Device into Stomach, Via Natural or Artificial Opening Endoscopic (ICD-10-PCS; principal; 2018-09-11 14:52)
PROC: 0DB68ZZ Excision of Stomach, Via Natural or Artificial Opening Endoscopic (ICD-10-PCS; 2018-09-11 14:52)
PROC: 30233N1 Transfusion of Nonautologous Red Blood Cells into Peripheral Vein, Percutaneous Approach (ICD-10-PCS; 2018-09-11 14:52)
PROC: 02H633Z Insertion of Infusion Device into Right Atrium, Percutaneous Approach (ICD-10-PCS; 2018-09-11 14:52)
PROC: 0DJ08ZZ Inspection of Upper Intestinal Tract, Via Natural or Artificial Opening Endoscopic (ICD-10-PCS; 2018-09-11 14:52)
DX: K92.2 Gastrointestinal hemorrhage, unspecified (principal); E87.1 Hypo-osmolality and hyponatremia; K94.22 Gastrostomy infection; L03.311 Cellulitis of abdominal wall; D62 Acute posthemorrhagic anemia; N39.0 Urinary tract infection, site not specified; B37.89 Other sites of candidiasis; T85.598A Other mechanical complication of other gastrointestinal prosthetic devices, implants and grafts, initial encounter; K92.1 Melena; B96.20 Unspecified Escherichia coli [E. coli] as the cause of diseases classified elsewhere; D50.0 Iron deficiency anemia secondary to blood loss (chronic); E86.0 Dehydration; E11.9 Type 2 diabetes mellitus without complications; F03.90 Unspecified dementia, unspecified severity, without behavioral disturbance, psychotic disturbance, mood disturbance, and anxiety; M81.0 Age-related osteoporosis without current pathological fracture; R13.10 Dysphagia, unspecified; Y83.8 Other surgical procedures as the cause of abnormal reaction of the patient, or of later complication, without mention of misadventure at the time of the procedure; Z85.028 Personal history of other malignant neoplasm of stomach; Z79.84 Long term (current) use of oral hypoglycemic drugs
CPT/HCPCS: 36415; 36430; 36569; 43762; 71045; 76937; 80048; 80053; 80061; 80150; 80202; 81001; 82270; 82962; 83036; 83735; 84100; 84134; 84439; 84443; 84478; 84484; 85014; 85018; 85025; 85610; 85730; 86850; 86900; 86901; 86920; 87040; 87070; 87086; 88305; 88312; 92610; 93005; 96374; 97116; 97161; 97167; 97530; 97535; 99211; 99285-25

== ENCOUNTER 2018-10-24 15:02 | Inpatient (IN) | payer MEDICARE, OTHER ==
[2018-10-24] MEDS: SOD CHLORIDE 0.9% 1,000 ML IV ×2 (17:08→21:08)
[2018-10-24 17:17] LABS: ADD MAN DIFF? NO
[2018-10-24 17:23] LABS: BASOPHILS % 0.5 % (0.0-2.0); EOSINOPHILS # 0.1 10^3/ul (0.0-0.5); EOSINOPHILS % 2.3 % (0.0-7.0); HEMATOCRIT 38.1 % (37.0-47.0); HEMOGLOBIN 12.2 g/dl (12.0-16.0); LYMPHOCYTES # 0.9 10^3/ul (0.8-2.9); LYMPHOCYTES % 15.9 % (15.0-51.0); MEAN CORPUSCULAR HEMOGLOBIN 30.4 pg (29.0-33.0); MEAN PLATELET VOLUME 9.8 fl (7.4-10.4); MONOCYTE # 0.4 10^3/ul (0.3-0.9); MONOCYTES % 6.8 % (0.0-11.0); NEUTROPHIL # 4.3 10^3/ul (1.6-7.5); PLATELET COUNT 325 10^3/UL (140-415); RED BLOOD COUNT 4.01 10^6/ul (4.20-5.40); RED CELL DISTRIBUTION WIDTH 12.9 % (11.5-14.5)
[2018-10-24 17:23] LABS: WHITE BLOOD COUNT 5.7 10^3/ul (4.8-10.8)
[2018-10-24 17:40] LABS: ALANINE AMINOTRANSFERASE 16 IU/L (13-69); ALBUMIN 4.2 g/dl (3.3-4.9); ALBUMIN/GLOBULIN RATIO 1.16; ALKALINE PHOSPHATASE 114 IU/L (42-121); ANION GAP 4 (5-13); ASPARTATE AMINO TRANSFERASE 24 IU/L (15-46); BILIRUBIN,INDIRECT 0.4 mg/dl (0-1.1); BILIRUBIN,TOTAL 0.4 mg/dl (0.2-1.3); BLOOD UREA NITROGEN 23 mg/dl (7-20); CALCIUM 10.1 mg/dl (8.4-10.2); CARBON DIOXIDE 34 mmol/L (21-31); CHLORIDE 102 mmol/L (97-110); CREATININE 0.95 mg/dl (0.44-1.00); GLUCOSE 132 mg/dl (70-220); POTASSIUM 3.9 mmol/L (3.5-5.1); SODIUM 140 mmol/L (135-144); TOTAL PROTEIN 7.8 g/dl (6.1-8.1)
[2018-10-24] MEDS ORDERED: ACETAMINOPHEN 325 MG TAB PO ×2 (19:00)
[2018-10-24] MEDS ORDERED: NACL 0.9% 3 ML SYG IV (19:00)
[2018-10-24] MEDS ORDERED: ONDANSETRON 4 MG INJ IV ×2 (19:00)
[2018-10-25 05:44] LABS: ADD MAN DIFF? NO
[2018-10-25 05:51] LABS: BASOPHIL # 0.1 10^3/ul (0.0-0.1); BASOPHILS % 0.8 % (0.0-2.0); EOSINOPHILS # 0.3 10^3/ul (0.0-0.5); EOSINOPHILS % 4.4 % (0.0-7.0); HEMATOCRIT 31.3 % (37.0-47.0); HEMOGLOBIN 10.3 g/dl (12.0-16.0); LYMPHOCYTES % 17.3 % (15.0-51.0); MEAN CORPUSCULAR HGB CONC 32.9 g/dl (32.0-37.0); MEAN CORPUSCULAR VOLUME 94.3 fl (82.0-101.0); MEAN PLATELET VOLUME 10.3 fl (7.4-10.4); MONOCYTE # 0.4 10^3/ul (0.3-0.9); MONOCYTES % 6.6 % (0.0-11.0); NEUTROPHIL # 4.2 10^3/ul (1.6-7.5); NEUTROPHILS % 70.6 % (39.0-77.0); PLATELET COUNT 282 10^3/UL (140-415); RED BLOOD COUNT 3.32 10^6/ul (4.20-5.40); RED CELL DISTRIBUTION WIDTH 12.8 % (11.5-14.5)
[2018-10-25 05:51] LABS: WHITE BLOOD COUNT 5.9 10^3/ul (4.8-10.8)
[2018-10-25 06:12] LABS: ALANINE AMINOTRANSFERASE 17 IU/L (13-69); ALBUMIN 3.2 g/dl (3.3-4.9); ALKALINE PHOSPHATASE 73 IU/L (42-121); ANION GAP 7 (5-13); ASPARTATE AMINO TRANSFERASE 30 IU/L (15-46); BILIRUBIN,INDIRECT 0.4 mg/dl (0-1.1); BILIRUBIN,TOTAL 0.4 mg/dl (0.2-1.3); BLOOD UREA NITROGEN 18 mg/dl (7-20); CALCIUM 8.8 mg/dl (8.4-10.2); CARBON DIOXIDE 26 mmol/L (21-31); CHLORIDE 107 mmol/L (97-110); CHOL/HDL RATIO 2.2 RATIO; CHOLESTEROL 139 mg/dl (100-200); GLUCOSE 90 mg/dl (70-220); HDL CHOLESTEROL 63 mg/dl (33-92); LDL CHOLESTEROL,CALCULATED 51 mg/dl; MAGNESIUM 1.9 mg/dl (1.7-2.5); POTASSIUM 3.6 mmol/L (3.5-5.1); SODIUM 140 mmol/L (135-144); TOTAL PROTEIN 6.1 g/dl (6.1-8.1); TRIGLYCERIDES 127 mg/dl (0-149)
[2018-10-25 06:34] LABS: HEMOGLOBIN A1C 5.4 % (0-5.9)
[2018-10-25] MEDS ORDERED: PROPOFOL 200 MG INJ (07:00)
[2018-10-25] MEDS ORDERED: FAMOTIDINE 20 MG INJ IV (09:00)
[2018-10-25] MEDS: DEXTROSE 5%-0.45% NACL 1,000 ML IV ×2 (10:09→21:30)
[2018-10-25 10:59] LABS: ADD UMIC YES; UR ASCORBIC ACID NEGATIVE (NEGATIVE); UR BILIRUBIN (Dip) NEGATIVE (NEGATIVE); UR BLOOD (Dip) 1+ mg/dL (NEGATIVE); UR CLARITY SLIGHTLY CLOUDY (CLEAR); UR COLOR YELLOW (YELLOW); UR GLUCOSE (Dip) NEGATIVE (NEGATIVE); UR KETONES (Dip) NEGATIVE (NEGATIVE); UR LEUKOCYTE ESTERASE (Dip) NEGATIVE Leu/ul (NEGATIVE); UR MUCUS FEW /HPF (NONE SEEN); UR NITRITE (Dip) NEGATIVE (NEGATIVE); UR RBC 3 /HPF (0-5); UR SPECIFIC GRAVITY (Dip) 1.013 (1.003-1.030); UR SQUAMOUS EPITHELIAL CELL FEW /HPF (FEW); UR TOTAL PROTEIN (Dip) 1+ mg/dl (NEGATIVE); UR UROBILINOGEN (Dip) NEGATIVE (NEGATIVE); UR WBC 4 /HPF (0-5)
[2018-10-25 15:58] LABS: INR 0.97
[2018-10-25] MEDS ORDERED: PROPOFOL 40 ML (16:12)
[2018-10-25] MEDS ORDERED: LIDOCAINE 2% (SDV) 5 ML INJ (16:12)
[2018-10-25] MEDS ORDERED: hydrALAzine 20 MG INJ IV (21:30)
[2018-10-26] MEDS: DEXTROSE 5%-0.45% NACL 1,000 ML IV ×3 (00:05→15:33)
[2018-10-26 06:40] LABS: ANION GAP 6 (5-13); BLOOD UREA NITROGEN 8 mg/dl (7-20); CALCIUM 8.6 mg/dl (8.4-10.2); CARBON DIOXIDE 28 mmol/L (21-31); CHLORIDE 103 mmol/L (97-110); CREATININE 0.63 mg/dl (0.44-1.00); GLUCOSE 183 mg/dl (70-220); MAGNESIUM 1.7 mg/dl (1.7-2.5); SODIUM 137 mmol/L (135-144)
[2018-10-26] MEDS: FAMOTIDINE 20 MG INJ IV (08:58)
[2018-10-26] MEDS: POTASSIUM CHLORIDE 20 MEQ POWDER FOR ORAL SOLN GTB ×2 (12:00→14:03)
[2018-10-26] MEDS: HEPARIN 5,000 UNIT/1 ML VIAL SC (21:20)
[2018-10-27 05:18] LABS: ADD MAN DIFF? NO
[2018-10-27 05:25] LABS: BASOPHILS % 0.6 % (0.0-2.0); EOSINOPHILS # 0.3 10^3/ul (0.0-0.5); EOSINOPHILS % 5.9 % (0.0-7.0); HEMATOCRIT 30.5 % (37.0-47.0); HEMOGLOBIN 10.2 g/dl (12.0-16.0); LYMPHOCYTES # 1.1 10^3/ul (0.8-2.9); LYMPHOCYTES % 20.3 % (15.0-51.0); MEAN CORPUSCULAR HEMOGLOBIN 30.5 pg (29.0-33.0); MEAN CORPUSCULAR HGB CONC 33.4 g/dl (32.0-37.0); MEAN CORPUSCULAR VOLUME 91.3 fl (82.0-101.0); MEAN PLATELET VOLUME 10.5 fl (7.4-10.4); MONOCYTE # 0.5 10^3/ul (0.3-0.9); MONOCYTES % 8.8 % (0.0-11.0); NEUTROPHIL # 3.4 10^3/ul (1.6-7.5); PLATELET COUNT 251 10^3/UL (140-415); RED BLOOD COUNT 3.34 10^6/ul (4.20-5.40); RED CELL DISTRIBUTION WIDTH 12.6 % (11.5-14.5)
[2018-10-27 05:25] LABS: WHITE BLOOD COUNT 5.2 10^3/ul (4.8-10.8)
[2018-10-27 05:38] LABS: ANION GAP 7 (5-13); BLOOD UREA NITROGEN 9 mg/dl (7-20); CALCIUM 8.5 mg/dl (8.4-10.2); CARBON DIOXIDE 25 mmol/L (21-31); CHLORIDE 102 mmol/L (97-110); CREATININE 0.72 mg/dl (0.44-1.00); GLUCOSE 249 mg/dl (70-220); POTASSIUM 4.2 mmol/L (3.5-5.1); SODIUM 134 mmol/L (135-144)
[2018-10-27] MEDS: FAMOTIDINE 20 MG INJ IV (09:22)
[2018-10-27] MEDS: DEXTROSE 5%-0.45% NACL 1,000 ML IV (09:23)
[2018-10-27] MEDS: HEPARIN 5,000 UNIT/1 ML VIAL SC (09:27)
== END 2018-10-27 21:00 | DRG 640 ==
LOC: E/R 15:02 → 2NE 18:36
PROC: 0DH63UZ Insertion of Feeding Device into Stomach, Percutaneous Approach (ICD-10-PCS; principal; 2018-10-25)
DX: R62.7 Adult failure to thrive (principal); E43 Unspecified severe protein-calorie malnutrition; K22.10 Ulcer of esophagus without bleeding; Z68.1 Body mass index [BMI] 19.9 or less, adult; Z85.028 Personal history of other malignant neoplasm of stomach; F03.90 Unspecified dementia, unspecified severity, without behavioral disturbance, psychotic disturbance, mood disturbance, and anxiety; R13.10 Dysphagia, unspecified; K29.70 Gastritis, unspecified, without bleeding; D64.9 Anemia, unspecified; E87.6 Hypokalemia
CPT/HCPCS: 36415; 80048; 80053; 80061; 81001; 82962; 83036; 83735; 84443; 85025; 85610; 87081; 92610; 99285-25